=== PATIENT | female | born 1960 | race Caucasian/White ===

== ENCOUNTER → 2017-01-01 | Outpatient (CLI) | payer BC ==
[~2017-01-01] MED LIST: AMBIEN PO; AMBIEN10 MG PO; ANEXSIA 7.5/3251 TA1 PO; BENADRYL PO; BENADRYL25 M1 PO; BIOTIN5 MG PO; BYSTOLIC5 MG PO; CALCIUM 500 +1 EAC2 PO; CALCIUM 600 W/D1 TA1 PO; CALCIUM CITRATE1 T15 PO; COUMADIN5 MG PO; COUMADIN6 MG PO; CYCLOBENZAPRINE5 MG PO; EFFEXOR; EFFEXOR PO; EFFEXOR75 M1 PO; EFFEXOR75 M2 PO; EFFEXOR75 MG PO; FISH OIL + D31 EACH PO; FISH OIL 1,0001 CAP PO; FISH OIL 1,0001 EAC2 PO; FLAXSEED OIL1000 M1 PO; FLEXERIL10 MG PO; GABAPENTIN600 MG PO; HYDROCODON-ACE1 EAC7 PO; HYDROCODON-ACE1 EAC9 PO; HYDROXYZINE HCL25 M1 PO; MAGNESIUM OXID200 MG PO; MAGNESIUM100 MG PO; MAGNESIUM250 M1 PO; MELATONIN3 MG PO; MS CONTIN15 M1 PO; MULTI VITAMIN1 EACH PO; MULTIVITAMIN1 UDCAP PO; NAPROSYN-EC500 M1 PO; NAPROXEN500 M1 PO; NORCO 10-325 TA1 TAB PO; NORCO 5/325 TAB1 TAB PO; OSTEO BI-FLEX1 EAC1 PO; PREDNISONE PO; TUMERIC PO; TYLENOL325 M1 PO; ULTRAM PO; VITAMIN B12-FO1 EACH PO; VITAMIN D1000 UNIT PO; VITAMIN D400 UNI1 PO; WELLBUTRIN SR150 MG PO; WELLBUTRIN SR200 MG PO; WELLBUTRIN100 MG PO; ZOFRAN PO
--- NOTE | ~2017-01-01 | NM8 ---
[facility] A Service of [facility] & [facility] RADIOLOGY TEXT RESULTS PATIENT: CHEMA RYDER LOCATION: [facility] : 60 UNIT #: [id number] AGE: [address]: Jaiden Sanchez MD SEX: F ORDER DR: [id number] [facility] [address] [place], [place] [address] [id number] O MR#: [id number] Acc #: [id number] NAME: CHEMA RYDER : 1960 SEX: F STUDY DATE/TIME: 01/01/2017 9:10 UNIT: [facility] ROOM: STUDY DESCRIPTION: OR Bone or Joint Whole Body Attending Physician: Jaiden Sanchez M.D. Referring Physician: Jaiden Sanchez M.D. Ordering Physician: Jaiden Sanchez M.D. Primary Care Physician: Alex Spencer M.D. MEDICAL IMAGING REPORT This report is preliminary unless electronic signature is present EXAM Three-phase bone scan HISTORY Back pain, bilateral knee pain, possible loose screw in right knee, started earlier this year. FINDINGS The patient was given 29.4 mCi of technetium 99-m MDP. Anterior and posterior flow images of the knees were obtained. blood pool and delayed imaging of the knees were obtained and delayed imaging through the entire body with spot images of the pelvis were obtained. There is some increased flow and blood pool activity around the right knee prosthesis. Delayed images showed marked increased uptake in the tibial adjacent to the prosthesis and slight increased uptake in the lateral femoral condyle and medial femoral condyle adjacent to prosthesis. On the left side, there is only minimal uptake in the patella on the delayed images. The whole body images show focal increased uptake, it appears to be in the ethmoid sinuses slightly to the right of midline seen on the anterior images. There is no abnormal uptake in the hips. IMPRESSION 1. There is a single focus of increased uptake in the face on the anterior images, probably within the ethmoid sinus area slightly to the right of midline. There are no correlative studies. A CT scan of the sinuses is recommended. 2. There is increased blood flow and blood pool activity around the right knee prosthesis suggesting inflammation or synovitis and there is increased uptake on delayed images around the prosthesis, particularly in the tibial component and particularly in the tibial region and to a lesser degree in the femoral condyles. 3. The left knee prosthesis only shows mild uptake in the patella on the STS. [facility] A Service of [facility] & [facility] RADIOLOGY TEXT RESULTS PATIENT: CHEMA RYDER LOCATION: [facility] : 60 UNIT #: [id number] AGE: [address]: Jaiden Sanchez MD SEX: F ORDER DR: delayed images and otherwise does not show any abnormal uptake. The rest of the study is normal. Dictated by... Holden Crook M.D. THIS IS AN ELECTRONICALLY VERIFIED REPORT Holden Crook M.D. at 01/02/2017 4:56 PM FEL/to TD: 01/02/2017 11:44 JOB #: [id number] MEDICAL IMAGING REPORT Page 1 of 1 COPY
== END | disposition home or self-care (01) ==
LOC: CNUC 08:18
DX: M54.9 Dorsalgia, unspecified (principal); M25.561 Pain in right knee; Z96.653 Presence of artificial knee joint, bilateral
CPT/HCPCS: 78306; A9503